=== PATIENT | female | born 1985 | race Caucasian/White ===

== ENCOUNTER 2017-06-05 18:12 | Emergency (ER) | payer OTHER ==
[~2017-06-05] VITALS: Ht 160 cm; Wt 75.5 kg
[~2017-06-05 18:12] MED LIST: ACET500C5 PO
[2017-06-05 18:14] VITALS: Ht 160 cm; Wt 75.5 kg
[2017-06-05] MEDS ORDERED: METHYLPREDNISOLONE 125 MG INJ IM ONE (19:30)
[2017-06-05] MEDS ORDERED: DIPHENHYDRAMINE 50 MG INJ IM ONE (19:30)
[2017-06-05] MEDS ORDERED: PRED50TA PO (19:48)
[2017-06-05] MEDS ORDERED: FAMO-96 PO (19:48)
[2017-06-05] MEDS ORDERED: BEN50 PO (19:48)
[2017-06-05 19:56] VITALS: BP 105/59; PULSE 72; RESP 18; TEMP 98
--- NOTE | 2017-06-05 20:05 | ERD ---
ER Documentation Chief Complaint Chief Complaint RASH THROUGH THE BODY HPI 31-year-old female presents here to emergency department for complaints of rash all over the body and itching, and started today. Patient took Benadryl today with only mild relief. Patient does not have any lip swelling, tongue swelling or stridor. Patient does not have any shortness of breath or wheezing. ROS All systems reviewed and are negative except as per history of present illness. Medications Home Meds Active Scripts Famotidine* (Pepcid*) 20 Mg Tablet, 20 MG PO BID, #20 TAB Prov:IAN SHIELDS [employer] 06/05/17 Prednisone* (Prednisone*) 50 Mg Tablet, 50 MG PO DAILY for 5 Days, TAB Prov:IAN SHIELDS [employer] 06/05/17 Diphenhydramine Hcl* (Benadryl*) 50 Mg Cap, 50 MG PO Q6H Y for ITCHING/RASH, # 30 CAP Prov:IAN SHIELDS NP 06/05/17 Acetaminophen* (Tylophen*) 500 Mg Capsule, 1 CAP PO Q6H Y for PAIN AND OR ELEVATED TEMP, #20 CAP Prov:CHARITY HAMM NP 06/21/15 Allergies Allergies: Coded Allergies: No Known Allergy (Unverified , 06/21/15) PMhx/Soc Medical and Surgical Hx: pt denies Medical Hx, pt denies Surgical Hx Hx Alcohol Use: No Hx Substance Use: No Hx Tobacco Use: No Smoking Status: Never smoker FmHx Family History: No coronary disease, No diabetes, No other Physical Exam Vitals Vital Signs Date Time Temp Pulse Resp B/P Pulse Ox O2 Delivery O2 Flow Rate FiO2 06/05/17 18:14 98.0 73 18 101/57 100 Physical Exam GENERAL: The patient is well developed and appropriate for usual state of health, in no apparent distress. CHEST: Clear to auscultation bilaterally. There are no rales, wheezes or rhonchi. HEART: Regular rate and rhythm. No murmurs, clicks, rubs or gallops. No S3 or S4. ABDOMEN: Soft, nontender and nondistended. Good bowel sounds. No rebound or guarding. No gross peritonitis. No gross organomegaly or masses. No Jacobsen sign or McBurney point tenderness. BACK: No midline or flank tenderness. EXTREMITIES: Equal pulses bilaterally. There is no peripheral clubbing, cyanosis or edema. No focal swelling or erythema. Full range of motion. Grossly neurovascularly intact. NEURO: Alert and oriented. Cranial nerves 2-12 intact. Motor strength in all 4 extremities with 5/5 strength. Sensation grossly intact. Normal speech and gait. SKIN: There is no apparent rash or petechia. The skin is warm and dry. HEMATOLOGIC AND LYMPHATIC: There is no evidence of excessive bruising or lymphedema. No gross cervical, axillary, or inguinal lymphadenopathy. Results 24 hrs Current Medications Medications (Trade) Dose Ordered Sig/Larissa Route PRN Reason Start Time Stop Time Status Last Admin Dose Admin Diphenhydramine HCl (Benadryl) 50 mg ONCE ONCE IM 06/05/17 19:30 06/05/17 19:31 DC 06/05/17 19:43 Methylprednisolone Sodium Succinate (Solu-Medrol) 125 mg ONCE ONCE IM 06/05/17 19:30 06/05/17 19:31 DC 06/05/17 19:43 Benadryl Solu-Medrol was given here in emergency department to help with urticaria, verbalized feeling much better afterwards Procedures/MDM Medical decision making: Patient symptoms was likely is consistent with urticaria. No symptoms of an anaphylactic shock. No symptoms of respiratory distress. No symptoms of angioedema. Prescription was given for Pepcid, Benadryl, is advised to follow-up with primary care doctor in 2-3 days for reevaluation of symptoms. Patient was advised to return to emergency department for any worsening symptoms. Disposition: Home. Stable Departure Diagnosis: Primary Impression: Urticaria Condition: Stable Patient Instructions: IAN Evans NP Jun 05, 2017 20:05
== END 2017-06-05 19:56 | disposition home or self-care (01) ==
LOC: FTE 18:12
DX: L50.9 Urticaria, unspecified (principal)
CPT/HCPCS: 96372; J1200; J2930; Z7502